=== PATIENT | female | born 1975 | race Asian ===

== ENCOUNTER → 2020-03-19 | Outpatient (CLI) | payer OTHER ==
[2020-03-19 16:54] LABS: BASOPHILS % (AUTO) 0.4 % (0.0-2.0); EOSINOPHILS # (AUTO) 0.3 K/uL (0-0.4); EOSINOPHILS % (AUTO) 3.5 % (0.0-4.0); HEMOGLOBIN 12.1 g/dL (12.0-16.0); LYMPHOCYTES # (AUTO) 2.4 K/uL (2.5-16.5); LYMPHOCYTES % (AUTO) 29.2 % (20.5-51.1); MEAN CORPUSCULAR HEMOGLOBIN 28 pg (27-31); MEAN CORPUSCULAR HGB CONC 34 g/dL (33-37); MONOCYTES # (AUTO) 0.5 K/uL (0.8-1.0); NEUTROPHILS # (AUTO) 5.1 K/uL (1.8-7.7); NEUTROPHILS % (AUTO) 60.9 % (42.2-75.2); PLATELET COUNT (AUTO) 346 K/uL (140-450); RED BLOOD CELL COUNT(AUTO) 4.39 MIL/uL (4.20-5.40); RED CELL DISTRIBUTION WIDTH 14.5 % (11.6-13.7); WHITE BLOOD COUNT (AUTO) 8.3 K/uL (4.8-10.8)
[2020-03-19 17:18] LABS: ALBUMIN 3.8 g/dL (3.4-5.0); ANION GAP 13.1 (8-16); CARBON DIOXIDE 28.7 mmol/L (21-32); CREATININE 0.8 mg/dL (0.6-1.3); POTASSIUM 3.8 mmol/L (3.5-5.1); THYROID STIMULATING HORMONE 2.48 uIU/mL (0.34-3.74); TOTAL BILIRUBIN 0.3 mg/dL (0.0-1.0)
[2020-03-20 09:06] LABS: FOLLICLE STIMULATING HORMONE 7.3 mIU/mL (.); T4 FREE (DIRECT) 1.17 ng/dL (0.82-1.77); THYROID PEROXIDASE (TPO) AB <9 IU/mL (0-34); TRIIODOTHYRONINE FREE 2.5 pg/mL (2.0-4.4)
== END | disposition home or self-care (01) ==
LOC: MLB 16:31
PROVIDERS: ATTEND Obstetrics & Gynecology
DX: N95.1 Menopausal and female climacteric states (principal)
CPT/HCPCS: 36415; 80053; 82306; 82607; 82670; 83001; 84402; 84403; 84439; 84443; 84481; 85025; 86376

== ENCOUNTER 2020-05-07 14:21 | Outpatient (CLI) | payer OTHER ==
[2020-05-08 10:07] LABS: ESTRADIOL SERUM 63.2 pg/mL (.); FOLLICLE STIMULATING HORMONE 4.7 mIU/mL (.); T4 FREE (DIRECT) 1.06 ng/dL (0.82-1.77)
== END 2020-05-07 20:55 | disposition home or self-care (01) ==
LOC: MLB 14:21
PROVIDERS: ATTEND Obstetrics & Gynecology
DX: N95.1 Menopausal and female climacteric states (principal)
CPT/HCPCS: 36415; 82670; 83001; 84144; 84403; 84439; 84443; 84480